=== PATIENT | female | born 1955 | race Caucasian/White ===

== ENCOUNTER 2022-01-18 23:19 | Inpatient (IN) | payer MEDICARE, OTHER ==
[~2022-01-18] VITALS: Ht 170.2 cm; Wt 56.7 kg
--- NOTE | 2022-01-18 23:50 | NUR ---
TO ER BED 13. [facility], PER STAFF PT IS AGITATED AND RAN AWAY FROM FACILITY. AAOX4. AMBULATORY WITH STEADY GAIT. BREATHING IS EVEN AND UNLABORED. CONNECTED TO MONITOR. CHANGED INTO GOWN. BELONGINGS SECURED IN LOCKER. SITTER WITHIN SIGHT. AWAITING MD GOMEZ
--- NOTE | 2022-01-18 23:51 | NUR ---
COVID SWAB COLLECTED
--- NOTE | 2022-01-18 23:52 | NUR ---
LAB AT BEDSIDE
[2022-01-19] MEDS ORDERED: PYRI-6 PO (00:07)
[2022-01-19] MEDS ORDERED: OXYM10TA10 PO (00:07)
[2022-01-19] MEDS ORDERED: GABA600T12 PO (00:07)
[2022-01-19] MEDS ORDERED: ACET325T53 PO (00:07)
[2022-01-19] MEDS ORDERED: UMEC62.5 IH (00:07)
[2022-01-19] MEDS ORDERED: FOLIC ACID PO (00:07)
[2022-01-19] MEDS ORDERED: MONT10TA22 PO (00:07)
[2022-01-19] MEDS ORDERED: CYAN10006 IM (00:07)
[2022-01-19] MEDS ORDERED: MEMA10TA PO (00:07)
[2022-01-19] MEDS ORDERED: MULT-213 PO (00:07)
[2022-01-19] MEDS ORDERED: AZEL137S7 (00:07)
[2022-01-19] MEDS ORDERED: FLUT16SP BNOSTRILS (00:07)
[2022-01-19] MEDS ORDERED: OMEP20CA15 PO (00:07)
[2022-01-19] MEDS ORDERED: OXYC-128 PO (00:07)
[2022-01-19] MEDS ORDERED: WARF6TAB49 PO (00:07)
[2022-01-19] MEDS ORDERED: CLON0.5T4 PO (00:07)
[2022-01-19] MEDS ORDERED: LORA2VIA11 IM (00:07)
[2022-01-19 00:19] LABS: BASOPHILS % (AUTO) 0.5 % (0.0-2.0); EOSINOPHILS % (AUTO) 1.1 % (0.0-6.0); HEMATOCRIT 37 % (33-45); HEMOGLOBIN 12.3 g/dL (11.5-14.8); LYMPHOCYTES # (AUTO) 1.5 K/uL (0.8-4.8); LYMPHOCYTES % (AUTO) 23.5 % (20.0-44.0); MEAN CORPUSCULAR HGB CONC 33 g/dl (31.0-36.0); MEAN CORPUSCULAR VOLUME 88 fL (82-100); MONOCYTES # (AUTO) 0.4 K/uL (0.1-1.30); MONOCYTES % (AUTO) 6.5 % (2.0-12.0); NEUTROPHILS # (AUTO) 4.4 K/uL (1.8-8.9); NEUTROPHILS % (AUTO) 68.4 % (43.0-81.0); PLATELET COUNT (AUTO) 230 K/uL (150-450); RED BLOOD CELL COUNT(AUTO) 4.16 MIL/uL (4.0-5.2); WHITE BLOOD COUNT (AUTO) 6.4 K/uL (4.3-11.0)
[2022-01-19 00:48] LABS: ALANINE AMINOTRANSFERASE 24 U/L (12-78); ALBUMIN 3.7 g/dL (3.4-5.0); ALKALINE PHOSPHATASE 69 U/L (46-116); ASPARTATE AMINOTRANSFERASE 18 U/L (15-37); BILIRUBIN,DIRECT 0.1 mg/dL (0.0-0.2); BILIRUBIN,TOTAL 0.3 mg/dL (0.2-1.0); CALCIUM, SERUM 8.9 mg/dL (8.5-10.1); CARBON DIOXIDE 30 mmol/L (21-32); CHLORIDE 106 mmol/L (98-107); CREATININE 0.7 mg/dL (0.6-1.3); GLUCOSE 141 mg/dL (74-106); POTASSIUM 3.9 mmol/L (3.5-5.1); SODIUM SERUM 143 mmol/L (136-145); TOTAL PROTEIN, SERUM 6.8 g/dL (6.4-8.2); UREA NITROGEN, BLOOD 11 mg/dL (7-18)
[2022-01-19 00:52] LABS: ACETAMINOPHEN 0 ug/ml (10-30); ALCOHOL, BLOOD < 3 mg/dL (0-0)
--- NOTE | 2022-01-19 01:51 | NUR ---
JUAN CARLOS GOMEZ.
[2022-01-19 06:58] LABS: BILIRUBIN,URINE NEGATIVE (NEGATIVE); COLOR,URINE YELLOW (YELLOW); LEUKOCYTE ESTERASE ,URINE MODERATE (NEGATIVE); NITRITE, URINE NEGATIVE (NEGATIVE); PROTEIN,URINE NEGATIVE (NEGATIVE); UGLUCOSE NEGATIVE (NEGATIVE); UROBILINOGEN,URINE 0.2 EU/dL (0.2)
[2022-01-19 07:51] LABS: BACTERIA,URINE Rare /HPF (None Seen); RBC,URINE 0-2 /HPF (0-2); SQUAMOUS EPITHELIAL CELL,UR Few /HPF (None Seen)
[2022-01-19] MEDS ORDERED: FOLI0.4T6 PO (08:07)
[2022-01-19] MEDS ORDERED: SENN-261 PO (08:07)
[2022-01-19] MEDS ORDERED: LACT10SO29 PO (08:07)
--- NOTE | 2022-01-19 08:17 | NUR ---
BREAKFAST GIVEN, REYMUNDO WELL
--- NOTE | 2022-01-19 08:22 | NUR ---
REPORT GIVEN TO FRANCOIS FOR CODI
[2022-01-19] MEDS ORDERED: TEMAZEPAM 7.5 MG CAPSULE PO PRN (10:00)
[2022-01-19] MEDS ORDERED: MAG HYDROX/AL HYDROX/SIMETH 30 ML UDC PO PRN (10:00)
[2022-01-19] MEDS ORDERED: MAGNESIUM HYDROXIDE 30 ML UDC PO PRN (10:00)
--- NOTE | 2022-01-19 10:25 | NUR ---
RN-CO: Admitted a 66 year old female from [facility] ED. Upon face to face assessment she is belligerent, non cooperative and sarcastic. When RN asked her if she has depression , she answered by asking back " are you depressed?" Her eye contact is intense her tone of voice is pressured. When Dr Donnelly asked her , she does not want to look at her in her eyes and also with a pressured speech. Per hold she was agitated in the facility and non compliant. She left the nursing facility 6 times without permission. She refused [facility] upon arrival, did not sign the admission papers, and also refused to provide specimen for MRSA. Anyhow, her right as a patient was discussed and booklet was given to her. Otherwise she doesn't want to hear anymore from the staff. Dr Donnelly gave the admitting orders.
[2022-01-19] MEDS ORDERED: BLOOD SUGAR DIAGNOSTIC 1 EACH STRIP IN ONE (11:00)
[2022-01-19] MEDS ORDERED: LACTULOSE 10 G/15 ML UDC (PYXIS) PO PRN (12:30)
[2022-01-19] MEDS: GABAPENTIN 100 MG CAPSULE PO SCH ×3 (13:00→17:39)
--- NOTE | 2022-01-19 15:34 | NUR ---
RN-CO: Patient refused photo to be taken and skin assessment.
[2022-01-19 16:00] VITALS: BP 105/56
[2022-01-19] MEDS ORDERED: GABAPENTIN 300 MG CAPSULE PO SCH (17:00)
[2022-01-19] MEDS ORDERED: MEMANTINE HCL 5 MG TABLET PO SCH (17:00)
[2022-01-19] MEDS: MONTELUKAST SODIUM (10MG) 10 MG TABLET PO SCH (17:39)
[2022-01-19] MEDS: WARFARIN SODIUM 2 MG TABLET PO SCH (17:40)
--- NOTE | 2022-01-19 19:35 | NUR ---
GPS RN OPENING NOTE RECEIVED PATIENT IN BED; AWAKE, ALERT AND ORIENTED X3. ON ROOM AIR; WELL TOLERATED WITH NO S/S RESPIRATORY DISTRESS. BREATHING EVENLY AND NONLABORED. DENIES ANY PAIN OR DISCOMFORT OF THIS TIME. ABLE TO MAKE NEEDS KNOWN. SAFETY MEASURES IMPLEMENTED: BED IN LOWEST LOCKED POSITION, SIDE RAILS UP X 2. WILL CONTINUE TO MONITOR.
[2022-01-19 20:00] VITALS: BP 105/57
[2022-01-19] MEDS: SENNOSIDES 8.6 MG TABLET PO SCH (22:51)
[2022-01-19] MEDS: MEMANTINE HCL 5 MG TABLET PO SCH (22:52)
[2022-01-19] MEDS: FLUTICASONE PROPIONATE 16 GM BOTTLE NS SCH (22:54)
[2022-01-20] MEDS: oxyCODONE/APAP (5/325 MG) 1 UDTAB TABLET PO PRN ×3 (02:48→15:00)
--- NOTE | 2022-01-20 02:52 | NUR ---
GPS RN NOTE PATIENT COMPLAINED PAIN ON HER HIPS WITH SCALE OF 7/10, PRN PERCOCET 5/325 MG 1 TAB GIVEN PO ORDERED @0248; WILL REASSESS AFTER 1 HOUR.
--- NOTE | 2022-01-20 07:30 | NUR ---
PT RECEIVED RESTING COMFORTABLY IN BED. NO S/S OR C/O PAIN OR DISTRESS NOTED. SIDE RAILS UP X2. WILL CONTINUE PLAN OF CARE.
[2022-01-20 08:00] VITALS: BP 109/67
[2022-01-20 08:27] LABS: CHOLESTEROL 176 mg/dL (<200); HDL CHOLESTEROL 59 mg/dL (40-60); LDL 104 mg/dL (0-99); TRIGLYCERIDES 57 mg/dL (30-150)
[2022-01-20] MEDS: MULTIVIT W/MINERALS 1 TAB TABLET PO SCH (08:39)
[2022-01-20] MEDS: PANTOPRAZOLE 40 MG TABLET.DR PO SCH (08:39)
[2022-01-20] MEDS: GABAPENTIN 100 MG CAPSULE PO SCH ×4 (08:39→17:09)
[2022-01-20] MEDS: FOLIC ACID 1 MG TABLET PO SCH (08:40)
[2022-01-20] MEDS: PYRIDOXINE HCL 50 MG TABLET PO SCH (08:43)
[2022-01-20] MEDS: MEMANTINE HCL 5 MG TABLET PO SCH ×2 (08:45→21:20)
[2022-01-20 09:19] LABS: CALCIUM, SERUM 9.4 mg/dL (8.5-10.1); CREATININE 0.5 mg/dL (0.6-1.3); POTASSIUM 3.6 mmol/L (3.5-5.1)
[2022-01-20 10:07] LABS: ALBUMIN 3.8 g/dL (3.4-5.0); BILIRUBIN,TOTAL 0.6 mg/dL (0.2-1.0); TOTAL PROTEIN, SERUM 6.9 g/dL (6.4-8.2)
[2022-01-20] MEDS: ACETAMINOPHEN 325 MG TABLET PO PRN ×2 (10:42→17:20)
[2022-01-20] MEDS: LORAZEPAM 0.5 MG TABLET PO PRN (10:42)
--- NOTE | 2022-01-20 12:24 | NUR ---
JASON Initial Discharge Plan: Pt. reported to video game script writer that she wants to go back home to the house that her mom gave her before she . Per hold, pt. resides at [facility]. SW will contact her boyfriend Vikas ([phone]) as needed. JASON will continue to work with pt., nurse Snow from [facility], and MD to ensure a safe and proper discharge plan. Pt. stated that she does not want her brother (Hubert) to be contacted, pt. prefers her boyfriend Vikas to be contacted ([phone]).
--- NOTE | 2022-01-20 12:26 | NUR ---
JASON Clinical Note: Pt. was brought to [facility] and placed on a 5150 hold for DTS/GD. Per hold, pt. appeared confused and kept talking about her brother removing her from her parents house. Pt.'s nurse Gwendolyn from [facility] ([phone]) reports pt. is agitated, not complying with directives, and attempted to leave the facility 6 times. Pt. is dx with anxiety and depression, she is on Ativan and Zyprexa. SW will gather collateral from pt.'s nurse Gwendolyn ([phone]) and will discuss discharge and treatment plan. Per pt., she does not want her brother Hubert to be contacted. Pt. prefers her boyfriend Vikas ([phone]). DC Note: Pt. reported to lyric writer that she wants to go back home to the house that her mom gave her before she . Per hold, pt. resides at [facility]. SW will contact her boyfriend Vikas ([phone]) as needed. JASON will continue to work with pt., nurse Snow from [facility], and to ensure a safe and proper discharge plan. Pt. stated that she does not want her brother (Hubert) to be contacted, pt. prefers her boyfriend Vikas to be contacted ([phone]).
--- NOTE | 2022-01-20 13:40 | NUR ---
JASON contacted pt.'s nursing facility ([facility] [phone]), spoke with Linden from Admissions. Per Linden, he will discuss with his team regarding pt.'s return to facility. Linden will give JASON a call back.
--- NOTE | 2022-01-20 13:43 | NUR ---
SW contacted her boyfriend (Vikas [phone]) and left voicemail.
--- NOTE | 2022-01-20 13:46 | NUR ---
Linden from [facility] ([phone]) called back and stated that he prefers a different placement for pt. Per Linden, if we cannot find a different placement, the facility is willing to take her back.
--- NOTE | 2022-01-20 14:34 | NUR ---
Law Office: JASON received a call from Anival ([phone]) who sent documents indicated that she is pt's appointed assistant attorney general from the court and that they are in the process of probate conservatorship. She reported that pt's hearing is February 18. Addendum: 01/20/22 at 1436 by JASON RODRIGUEZ JASON placed copy in pt's chart.
[2022-01-20 16:00] VITALS: BP 112/58
[2022-01-20] MEDS ORDERED: WARFARIN SODIUM 5 MG TABLET PO ONE (17:00)
[2022-01-20] MEDS: MONTELUKAST SODIUM (10MG) 10 MG TABLET PO SCH (17:09)
[2022-01-20] MEDS: WARFARIN SODIUM 2 MG TABLET PO SCH (17:13)
--- NOTE | 2022-01-20 18:04 | NUR ---
CHANGE OF SHIFT REPORT PT RESTING COMFORTABLY IN BED. NO S/S OR C/O PAIN OR DISTRESS NOTED. SIDE RAILS UP X2, PT KEPT CLEAN DRY AND COMFORTABLE. NO SIGNIFICANT CHANGE SINCE PREVIOUS SHIFT. WILL GIVE REPORT TO WADE HERMOSILLO.
[2022-01-20] MEDS: IPRATROPIUM NEB FS 0.5 MG/2.5 ML AMPUL.NEB NEB SCH ×2 (19:30→20:51)
[2022-01-20 20:00] VITALS: BP 105/52
[2022-01-20] MEDS: SENNOSIDES 8.6 MG TABLET PO SCH (21:20)
[2022-01-20] MEDS: FLUTICASONE PROPIONATE 16 GM BOTTLE NS SCH (21:20)
[2022-01-21] MEDS: IPRATROPIUM NEB FS 0.5 MG/2.5 ML AMPUL.NEB NEB SCH ×4 (01:30→20:13)
[2022-01-21] MEDS: oxyCODONE/APAP (5/325 MG) 1 UDTAB TABLET PO PRN ×2 (04:50→12:18)
[2022-01-21] MEDS: PANTOPRAZOLE 40 MG TABLET.DR PO SCH (07:30)
[2022-01-21 08:00] VITALS: BP 99/59
[2022-01-21] MEDS: GABAPENTIN 100 MG CAPSULE PO SCH ×3 (09:14→17:30)
[2022-01-21] MEDS: MEMANTINE HCL 5 MG TABLET PO SCH ×2 (09:14→21:44)
[2022-01-21] MEDS: FOLIC ACID 1 MG TABLET PO SCH (09:14)
[2022-01-21] MEDS: MULTIVIT W/MINERALS 1 TAB TABLET PO SCH (09:14)
[2022-01-21] MEDS: PYRIDOXINE HCL 50 MG TABLET PO SCH (09:15)
--- NOTE | 2022-01-21 12:18 | NUR ---
Percocet 5/325 given for back pain will continue to monitor .
[2022-01-21 16:00] VITALS: BP 100/61
[2022-01-21] MEDS ORDERED: WARFARIN SODIUM 5 MG TABLET PO ONE (17:00)
[2022-01-21] MEDS: WARFARIN SODIUM 2 MG TABLET PO SCH (17:31)
[2022-01-21] MEDS: MONTELUKAST SODIUM (10MG) 10 MG TABLET PO SCH (18:41)
--- NOTE | 2022-01-21 18:56 | NUR ---
5250 hold explained to patient able to verbalize understanding copy given to patient .
[2022-01-21 20:17] VITALS: BP 102/55
[2022-01-21] MEDS: SENNOSIDES 8.6 MG TABLET PO SCH (21:44)
[2022-01-21] MEDS: FLUTICASONE PROPIONATE 16 GM BOTTLE NS SCH (21:56)
[2022-01-22] MEDS: IPRATROPIUM NEB FS 0.5 MG/2.5 ML AMPUL.NEB NEB SCH ×4 (01:36→19:30)
[2022-01-22 08:00] VITALS: BP 112/69
[2022-01-22] MEDS: MEMANTINE HCL 5 MG TABLET PO SCH ×2 (08:15→21:34)
[2022-01-22] MEDS: FOLIC ACID 1 MG TABLET PO SCH (08:15)
[2022-01-22] MEDS: PANTOPRAZOLE 40 MG TABLET.DR PO SCH (08:15)
[2022-01-22] MEDS: GABAPENTIN 100 MG CAPSULE PO SCH ×3 (08:16→17:33)
[2022-01-22] MEDS: MULTIVIT W/MINERALS 1 TAB TABLET PO SCH (08:16)
[2022-01-22] MEDS: ACETAMINOPHEN 325 MG TABLET PO PRN (08:16)
[2022-01-22] MEDS: PYRIDOXINE HCL 50 MG TABLET PO SCH (08:18)
--- NOTE | 2022-01-22 11:25 | NUR ---
SNF Referral: JASON received sent clinicals to Leann from [facility] ([phone]) for placement. JASON sent H & P, progress notes, and medication list.
[2022-01-22] MEDS: oxyCODONE/APAP (5/325 MG) 1 UDTAB TABLET PO PRN ×2 (11:32→21:46)
--- NOTE | 2022-01-22 11:33 | NUR ---
RN-CO: PERCOCET GIVEN FOR HIP PAIN 01/03.
[2022-01-22] MEDS: LORAZEPAM 0.5 MG TABLET PO PRN (12:25)
--- NOTE | 2022-01-22 12:27 | NUR ---
RN-CO: ATIVAN 0.5 MG PO GIVEN FOR RESTLESSNESS.
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
--- NOTE | 2022-01-22 13:49 | NUR ---
SNF Referral: JASON sent clinicals to Ant grissom from [facility] ([phone]) for placement option. JASON sent H & P, progress notes, and medication list.
[2022-01-22] MEDS: DULOXETINE HCL 30 MG CAPSULE.DR PO SCH (14:12)
--- NOTE | 2022-01-22 15:21 | NUR ---
RN-CO: PATIENT IS FOCUS ON DISCHARGED AND NARCOTICS. SHE STATED SHE HAS SEVERE PAIN IN THE HIPS BUT SHE WALKS FAST IN THE HALLWAY.SHE IS PERSEVERATING AND FORGETFUL WHEN ASKING QUESTIONS.
--- NOTE | 2022-01-22 15:46 | NUR ---
RN-CO: DR KLENI was notified regarding the PT INR result, awaiting to call back.
[2022-01-22 16:00] VITALS: BP 111/65
--- NOTE | 2022-01-22 16:22 | NUR ---
RN-CO: DR KLEIN RESPONDED AND ORDERED TO HOLD COUMADIN 11 MG PO TODAY FOR PT 12.2 AND INR 1.17. NOTED.
[2022-01-22] MEDS: WARFARIN SODIUM 2 MG TABLET PO SCH (16:38)
[2022-01-22] MEDS ORDERED: WARFARIN SODIUM 5 MG TABLET PO SCH (17:00)
[2022-01-22] MEDS: MONTELUKAST SODIUM (10MG) 10 MG TABLET PO SCH (17:33)
--- NOTE | 2022-01-22 19:20 | NUR ---
GPS RN NOTES RECEIVED PATIENT IN HER ROOM RESTING COMFORTABLY. ALERT AND ORIENTED X2. NO S/SX OF ACUTE DISTRESS NOTED. PATIENT IS ANXIOUS, BLUNTED AFFECT, FORGETFUL. NO VERBALIZATION OF THOUGHTS AND FEELINGS. SAFETY PRECAUTIONS IN PLACE. WILL CONTINUE TO MONITOR Q15MIN ROUNDS FOR SAFETY AND BEHAVIOR.
[2022-01-22 20:00] VITALS: BP 119/72
[2022-01-22] MEDS: FLUTICASONE PROPIONATE 16 GM BOTTLE NS SCH (21:34)
[2022-01-22] MEDS: SENNOSIDES 8.6 MG TABLET PO SCH (21:34)
[2022-01-23] MEDS: IPRATROPIUM NEB FS 0.5 MG/2.5 ML AMPUL.NEB NEB SCH ×4 (01:30→19:30)
[2022-01-23 08:00] VITALS: BP 114/61
[2022-01-23] MEDS: PANTOPRAZOLE 40 MG TABLET.DR PO SCH (08:31)
[2022-01-23] MEDS: GABAPENTIN 100 MG CAPSULE PO SCH ×3 (09:21→16:55)
[2022-01-23] MEDS: MULTIVIT W/MINERALS 1 TAB TABLET PO SCH (09:21)
[2022-01-23] MEDS: MEMANTINE HCL 5 MG TABLET PO SCH ×2 (09:21→21:16)
[2022-01-23] MEDS: FOLIC ACID 1 MG TABLET PO SCH (09:22)
[2022-01-23] MEDS: DULOXETINE HCL 30 MG CAPSULE.DR PO SCH (09:22)
[2022-01-23] MEDS: PYRIDOXINE HCL 50 MG TABLET PO SCH (09:25)
[2022-01-23] MEDS: oxyCODONE/APAP (5/325 MG) 1 UDTAB TABLET PO PRN ×2 (11:36→23:08)
--- NOTE | 2022-01-23 14:13 | NUR ---
Court Notification: Pt did not want this board writer to notify for 5250 hearing.
--- NOTE | 2022-01-23 14:53 | NUR ---
RN-NOTES PATIENT WATCHING TV IN THE DAY ROOM,CALM,AND COOPERATIVE WITH STAFF,NO ACUTE DISTRESS NOTED. COMPLIANT WITH MEDICATIONS.ABLE TO AMBULATE WITH WALKER.NOTED PATIENT WITH EPISODE OF FORGETFUL.NEEDS FREQUENT INSTRUCTIONS. ALL NEEDS ATTENDED AND ANTICIPATED. WILL CONT. MONITORING FOR SAFETY AND BEHAVIOR. WILL ENDORSE TO THE INCOMING SHIFT.
--- NOTE | 2022-01-23 15:16 | NUR ---
Court Hearing: Patient's court hearing for 9090 was today and it was upheld for GD.
--- NOTE | 2022-01-23 15:36 | NUR ---
SNF Contact: SW received a call from Ant grissom from [facility] ([phone]) who stated pt is accepted.
[2022-01-23 16:00] VITALS: BP 119/66
--- NOTE | 2022-01-23 16:39 | NUR ---
RN-NOTES DR. VEGA NOTIFIED WITH PATIENT INR 1.34 WITH TO ORDER OF COUMADIN 6MG P.O AT 5PM .NOTED AND CARRIED OUT.
[2022-01-23] MEDS: WARFARIN SODIUM 2 MG TABLET PO SCH (16:57)
[2022-01-23] MEDS: MONTELUKAST SODIUM (10MG) 10 MG TABLET PO SCH (17:42)
[2022-01-23 20:00] VITALS: BP 126/74
[2022-01-23] MEDS: SENNOSIDES 8.6 MG TABLET PO SCH (21:16)
[2022-01-23] MEDS: FLUTICASONE PROPIONATE 16 GM BOTTLE NS SCH (21:16)
--- NOTE | 2022-01-23 23:10 | NUR ---
RN NOTES: PAIN PT. C/O PAIN RIGHT/LEFT HIP 02/02 , PRN PERCOCET1 TAB GIVEN PER PT. REQUEST, WILL CONTINUE TO MONITOR.
[2022-01-24] MEDS: IPRATROPIUM NEB FS 0.5 MG/2.5 ML AMPUL.NEB NEB SCH ×4 (01:23→19:30)
--- NOTE | 2022-01-24 05:02 | NUR ---
RN NOTE : PATIENT IN HER ROOM RESTING. NO S/SX OF ACUTE DISTRESS NOTED.PT. PARANOID, NEEDY DEMENDING, EASILY AGITATED ,ANXIOUS, BLUNTED AFFECT, FORGETFUL. NO VERBALIZATION OF THOUGHTS AND FEELINGS. SAFETY PRECAUTIONS IN PLACE. WILL CONTINUE TO MONITOR Q15MIN ROUNDS FOR SAFETY AND BEHAVIOR.
[2022-01-24 08:00] VITALS: BP 116/69
[2022-01-24] MEDS: DULOXETINE HCL 30 MG CAPSULE.DR PO SCH (08:10)
[2022-01-24] MEDS: FOLIC ACID 1 MG TABLET PO SCH (08:10)
[2022-01-24] MEDS: MEMANTINE HCL 5 MG TABLET PO SCH ×2 (08:10→20:45)
[2022-01-24] MEDS: PANTOPRAZOLE 40 MG TABLET.DR PO SCH (08:10)
[2022-01-24] MEDS: GABAPENTIN 100 MG CAPSULE PO SCH ×3 (08:10→16:30)
[2022-01-24] MEDS: MULTIVIT W/MINERALS 1 TAB TABLET PO SCH (09:21)
[2022-01-24] MEDS: PYRIDOXINE HCL 50 MG TABLET PO SCH (09:21)
--- NOTE | 2022-01-24 10:26 | NUR ---
Law Office: JASON contacted court appointed workers compensation attorney Anival ([phone]) and gathered more information. She stated pt's court will be February 18, 2022. JASON explained that pt cannot return back to [facility] due to eloping and accepted at [facility], she was agreeable of her going to this facility. Anival expressed pt is aware of this process and has been speaking to pt everyday. JASON explained that pt is unsure of who Bill is. Anival explained that Bill will be the assigned temp conservator and pt is aware of this.
[2022-01-24 16:00] VITALS: BP 117/67
[2022-01-24] MEDS: WARFARIN SODIUM 2 MG TABLET PO SCH (16:31)
--- NOTE | 2022-01-24 17:20 | NUR ---
RN-NOTES PATIENT WATCHING TV IN THE DAY ROOM,CALM,NO ACUTE DISTRESS NOTED. COMPLIANT WITH MEDICATIONS.ABLE TO MAKE NEEDS KNOWN TO THE STAFF AND AMBULATE WITH WALKER.ALL NEEDS ATTENDED AND ANTICIPATED. WILL CONT. MONITORING FOR SAFETY AND BEHAVIOR.WILL ENDORSE TO INCOMING NURSE FOR CONTINUITY OF CARE.
[2022-01-24] MEDS: MONTELUKAST SODIUM (10MG) 10 MG TABLET PO SCH (17:42)
[2022-01-24 20:00] VITALS: BP 112/70
[2022-01-24] MEDS: SENNOSIDES 8.6 MG TABLET PO SCH (21:02)
[2022-01-24] MEDS: FLUTICASONE PROPIONATE 16 GM BOTTLE NS SCH (21:04)
[2022-01-25] MEDS: IPRATROPIUM NEB FS 0.5 MG/2.5 ML AMPUL.NEB NEB SCH ×4 (01:30→20:07)
--- NOTE | 2022-01-25 06:46 | NUR ---
RN NOTE : PATIENT IN HER ROOM RESTING. NO S/SX OF ACUTE DISTRESS NOTED.PT. DISORGNIZED , BUT I SHIFT PT. BEHAVIOR COOPERTIVE AT TIMES, NEEDY , EASILY AGITATED , BLUNTED AFFECT, FORGETFUL. NO VERBALIZATION OF THOUGHTS AND FEELINGS. SAFETY PRECAUTIONS IN PLACE. WILL CONTINUE TO MONITOR Q15MIN ROUNDS FOR SAFETY AND BEHAVIOR.
[2022-01-25 08:00] VITALS: BP 120/62
[2022-01-25] MEDS: PANTOPRAZOLE 40 MG TABLET.DR PO SCH (08:06)
[2022-01-25] MEDS: MULTIVIT W/MINERALS 1 TAB TABLET PO SCH (08:18)
[2022-01-25] MEDS: FOLIC ACID 1 MG TABLET PO SCH (08:18)
[2022-01-25] MEDS: MEMANTINE HCL 5 MG TABLET PO SCH ×2 (08:18→21:16)
[2022-01-25] MEDS: GABAPENTIN 100 MG CAPSULE PO SCH ×3 (08:18→17:07)
[2022-01-25] MEDS: DULOXETINE HCL 30 MG CAPSULE.DR PO SCH (08:20)
[2022-01-25] MEDS: PYRIDOXINE HCL 50 MG TABLET PO SCH (09:15)
[2022-01-25] MEDS ORDERED: WARFARIN SODIUM 2 MG TABLET PO ONE (09:30)
--- NOTE | 2022-01-25 11:04 | NUR ---
RN-NOTES DR. KLEIN T.O ORDER TO GIVE COUMADIN 10MG TODAY AND WILL RESUME COUMADIN 6MG P.O TOMORROW.
[2022-01-25] MEDS: oxyCODONE/APAP (5/325 MG) 1 UDTAB TABLET PO PRN (15:04)
[2022-01-25 16:00] VITALS: BP 124/71
[2022-01-25] MEDS: WARFARIN SODIUM 2 MG TABLET PO SCH (17:00)
[2022-01-25] MEDS: MONTELUKAST SODIUM (10MG) 10 MG TABLET PO SCH (17:07)
--- NOTE | 2022-01-25 17:27 | NUR ---
RN-NOTES PATIENT WATCHING TV IN THE DAY ROOM,CALM,NO ACUTE DISTRESS NOTED. CALM,AND COOPERATIVE WITH STAFF.COMPLIANT WITH MEDICATIONS.ABLE TO MAKE NEEDS KNOWN TO THE STAFF AND AMBULATE WITH WALKER.ALL NEEDS ATTENDED AND ANTICIPATED. WILL CONT. MONITORING FOR SAFETY AND BEHAVIOR.WILL ENDORSE TO INCOMING NURSE FOR CONTINUITY OF CARE.
[2022-01-25 21:14] VITALS: BP 94/52
[2022-01-25] MEDS: SENNOSIDES 8.6 MG TABLET PO SCH (21:16)
[2022-01-25] MEDS: FLUTICASONE PROPIONATE 16 GM BOTTLE NS SCH (21:17)
[2022-01-26] MEDS: IPRATROPIUM NEB FS 0.5 MG/2.5 ML AMPUL.NEB NEB SCH ×4 (01:30→20:30)
--- NOTE | 2022-01-26 01:40 | NUR ---
RT Patient refused breathing tx at this time.
--- NOTE | 2022-01-26 06:12 | NUR ---
END OF SHIFT REPORT Hours of sleep 7. Patient cooperative, compliant with PO medication. Ambulated to the bathroom, no c/o pain. No agitated behavior during the shift. Will endorse to oncoming RN.
[2022-01-26 08:00] VITALS: BP 124/67
[2022-01-26] MEDS: PANTOPRAZOLE 40 MG TABLET.DR PO SCH (08:03)
[2022-01-26] MEDS: MULTIVIT W/MINERALS 1 TAB TABLET PO SCH (08:27)
[2022-01-26] MEDS: GABAPENTIN 100 MG CAPSULE PO SCH ×3 (08:27→16:58)
[2022-01-26] MEDS: DULOXETINE HCL 30 MG CAPSULE.DR PO SCH (08:28)
[2022-01-26] MEDS: MEMANTINE HCL 5 MG TABLET PO SCH ×2 (08:28→21:47)
[2022-01-26] MEDS: FOLIC ACID 1 MG TABLET PO SCH (08:28)
[2022-01-26] MEDS: PYRIDOXINE HCL 50 MG TABLET PO SCH (08:29)
[2022-01-26] MEDS: oxyCODONE/APAP (5/325 MG) 1 UDTAB TABLET PO PRN (09:51)
--- NOTE | 2022-01-26 11:06 | NUR ---
RN-NOTES DR. GILMORE MADE AWARE OF PATIENT INR RESULT TODAY WITH T.O ORDER TO CONTINUE COUMADIN 6MG P.O @ 5PM.
[2022-01-26 16:01] VITALS: BP 100/63
[2022-01-26] MEDS: WARFARIN SODIUM 2 MG TABLET PO SCH (16:59)
[2022-01-26] MEDS: MONTELUKAST SODIUM (10MG) 10 MG TABLET PO SCH (17:26)
--- NOTE | 2022-01-26 18:15 | NUR ---
RN-NOTES PATIENT VISIBLA IN THE UNIT,NO ACUTE DISTRESS NOTED. CALM,AND COOPERATIVE WITH STAFF.COMPLIANT WITH MEDICATIONS.ABLE TO MAKE NEEDS KNOWN TO THE STAFF AND AMBULATE WITH WALKER.ALL NEEDS ATTENDED AND ANTICIPATED. WILL CONT. MONITORING FOR SAFETY AND BEHAVIOR.WILL ENDORSE TO INCOMING NURSE FOR CONTINUITY OF CARE.
[2022-01-26 20:09] VITALS: BP 102/63
[2022-01-26] MEDS: SENNOSIDES 8.6 MG TABLET PO SCH (21:46)
[2022-01-26] MEDS: FLUTICASONE PROPIONATE 16 GM BOTTLE NS SCH (21:47)
[2022-01-26] MEDS: ACETAMINOPHEN 325 MG TABLET PO PRN (22:15)
[2022-01-27] MEDS: IPRATROPIUM NEB FS 0.5 MG/2.5 ML AMPUL.NEB NEB SCH ×4 (01:30→19:30)
[2022-01-27] MEDS: PANTOPRAZOLE 40 MG TABLET.DR PO SCH (07:56)
[2022-01-27 08:00] VITALS: BP 100/65
[2022-01-27] MEDS: DULOXETINE HCL 30 MG CAPSULE.DR PO SCH (08:01)
[2022-01-27] MEDS: GABAPENTIN 100 MG CAPSULE PO SCH ×3 (08:01→16:20)
[2022-01-27] MEDS: MULTIVIT W/MINERALS 1 TAB TABLET PO SCH (08:01)
[2022-01-27] MEDS: MEMANTINE HCL 5 MG TABLET PO SCH ×2 (08:01→21:44)
[2022-01-27] MEDS: FOLIC ACID 1 MG TABLET PO SCH (08:02)
[2022-01-27] MEDS: PYRIDOXINE HCL 50 MG TABLET PO SCH (08:04)
--- NOTE | 2022-01-27 11:35 | NUR ---
JASON Note: SW met with pt again explaining her current situation. Pt states that she has "no idea with what is going on". SW explained her current situation all over again. Reminding her about court appointed district manager postal service and not having a safe place to go too. Pt appeared forgetful and appeared confused. SW has explained this to pt multiple times.
[2022-01-27 16:00] VITALS: BP 102/60
[2022-01-27] MEDS: WARFARIN SODIUM 2 MG TABLET PO SCH (16:23)
[2022-01-27] MEDS ORDERED: WARFARIN SODIUM 5 MG TABLET PO SCH (17:00)
[2022-01-27] MEDS: MONTELUKAST SODIUM (10MG) 10 MG TABLET PO SCH (17:18)
[2022-01-27] MEDS: oxyCODONE/APAP (5/325 MG) 1 UDTAB TABLET PO PRN (17:56)
[2022-01-27 19:48] VITALS: BP 124/54
[2022-01-27] MEDS: SENNOSIDES 8.6 MG TABLET PO SCH (21:44)
[2022-01-27] MEDS: FLUTICASONE PROPIONATE 16 GM BOTTLE NS SCH (22:39)
[2022-01-28] MEDS: IPRATROPIUM NEB FS 0.5 MG/2.5 ML AMPUL.NEB NEB SCH ×4 (02:35→21:00)
[2022-01-28] MEDS: PANTOPRAZOLE 40 MG TABLET.DR PO SCH (07:30)
[2022-01-28 08:00] VITALS: BP 120/57
[2022-01-28] MEDS: MEMANTINE HCL 5 MG TABLET PO SCH ×2 (08:48→21:24)
[2022-01-28] MEDS: MULTIVIT W/MINERALS 1 TAB TABLET PO SCH (08:48)
[2022-01-28] MEDS: FOLIC ACID 1 MG TABLET PO SCH (08:48)
[2022-01-28] MEDS: GABAPENTIN 100 MG CAPSULE PO SCH ×3 (08:48→17:59)
[2022-01-28] MEDS: DULOXETINE HCL 30 MG CAPSULE.DR PO SCH (08:48)
[2022-01-28] MEDS: PYRIDOXINE HCL 50 MG TABLET PO SCH (08:50)
--- NOTE | 2022-01-28 10:56 | NUR ---
Law Office: SW contacted court appointed civil rights attorney Anival ([phone]) and notified that pt will be discharged 01/29/22 to [facility] and she was agreeable of this.
--- NOTE | 2022-01-28 11:30 | NUR ---
JASON Note: SW met with patient and explained to pt multiple times that she has a court appointed deputy commonwealth's attorney and will have her court this month for probate conservatorship. SW stated she is accepted at [facility] and cannot return back to [facility]. Pt acts like she understands and agrees.
[2022-01-28] MEDS: oxyCODONE/APAP (5/325 MG) 1 UDTAB TABLET PO PRN ×2 (13:43→20:14)
--- NOTE | 2022-01-28 13:47 | NUR ---
Percocet 5/325 given for back pain will continue to monitor .
[2022-01-28 16:00] VITALS: BP 107/61
[2022-01-28] MEDS: WARFARIN SODIUM 2 MG TABLET PO SCH (17:58)
[2022-01-28] MEDS: MONTELUKAST SODIUM (10MG) 10 MG TABLET PO SCH (17:59)
--- NOTE | 2022-01-28 19:30 | NUR ---
GPS RN NOTES RECEIVED ON IN THE ACTIVITY ROOM SITTING ON [employer] CHAIR WATCHING TV PROGRAM.BREATHING REGULAR,NOT IN ANY FORM OF DISTRESS.C.O MILD PAIN,TOLERABLE ON THE RIGHT HIP,AMBULATE WITH WALKER,ABLE TO VERBALIZE NEEDS,FOLLOW INSTRUCTION,MED COMPLIANT.WILL CONTINUE TO MONITOR TO MONITOR BEHAVIOR.
[2022-01-28 19:47] VITALS: BP 112/54
[2022-01-28 20:00] VITALS: BP 112/54
--- NOTE | 2022-01-28 20:14 | NUR ---
GPS RN NOTES C/O PAIN ON RIGHT HIP AND LOWER BACK 7/10 ON PAIN SCALE,PERCOCET 5/325MG, 1 TAB PO GIVEN ORDERED FOR MODERATE PAIN.FALL PRECAUTION OBSERVED.ENCOURAGED TO STAY ON BED.
[2022-01-28] MEDS: FLUTICASONE PROPIONATE 16 GM BOTTLE NS SCH (21:24)
[2022-01-28] MEDS: SENNOSIDES 8.6 MG TABLET PO SCH (21:24)
--- NOTE | 2022-01-29 | NUR ---
GPS RN NOTES COVID ANTIGEN DONE,SENT TO LAB.
[2022-01-29] MEDS: IPRATROPIUM NEB FS 0.5 MG/2.5 ML AMPUL.NEB NEB SCH ×2 (01:30→08:30)
--- NOTE | 2022-01-29 07:49 | NUR ---
SW Discharge Note: Patient will be discharged to senior care facility [facility] [address] [place] [address]; ([phone]). Please arrange transportation at 1PM. Field Service Consultant spoke with Ant grissom at [facility] ([phone]) who stated patient will be accepted at facility today. Patients is aware and agreeable. Patient is alert and oriented x2 and is not able to plan for self-care at this time but is willing to accept care provided for her at the facility. Patient denies suicidal or homicidal ideation. Patients court appointed bookkeepers supervisor Anival ([phone]) is aware. Patient will follow-up with (Psychiatrist) Dr. Donnelly [address], [place] [address]; ([phone]) and Shipper Dr. Caldera [address], [place] [address]; ([phone]). Patient presents with euthymic mood and congruent affect.
[2022-01-29] MEDS: PANTOPRAZOLE 40 MG TABLET.DR PO SCH (07:52)
[2022-01-29 08:00] VITALS: BP 112/63
[2022-01-29] MEDS: PYRIDOXINE HCL 50 MG TABLET PO SCH (08:25)
[2022-01-29] MEDS: FOLIC ACID 1 MG TABLET PO SCH (08:25)
[2022-01-29] MEDS: DULOXETINE HCL 30 MG CAPSULE.DR PO SCH (08:25)
[2022-01-29] MEDS: MEMANTINE HCL 5 MG TABLET PO SCH (08:25)
[2022-01-29] MEDS: GABAPENTIN 100 MG CAPSULE PO SCH ×2 (08:25→12:19)
[2022-01-29] MEDS: MULTIVIT W/MINERALS 1 TAB TABLET PO SCH (08:25)
--- NOTE | 2022-01-29 11:33 | NUR ---
JASON Note: SW met with pt with Dr. Andres present on January 24, 2022 as it indicates in doctor Andres's note. JASON and doctor Andres discussed with pt her current condition and having a court appointed civil rights attorney and that it is in the process of probate conservatorship. Pt had no current safe discharge plan. JASON spoke with her civil rights attorney Anival on January 24, 2022 who explained that pt is aware of this process and has been in communication with pt and has explained it to her multiple times. Anival, civil rights attorney, stated pt does not have an existing or safe place to go too.
--- NOTE | 2022-01-29 13:30 | NUR ---
RN-DISCHARGE NOTES PATIENT HAD A DISCHARGE ORDER FROM DR. OZUNA ( PSYCHIATRIST) MILAGRO FRANCES MEDICALLY CLEARED PATIENT FOR DISCHARGE. REPORT WAS GIVEN TO [facility]. PATIENT LEFT THE UNIT IN STABLE CONDITION A/O X2, DID NOT VERBALIZE SI/HI,DENIES VISUAL/AUDITORY HALLUCINATIONS AT THE TIME OF DISCHARGE. PATIENT LEFT THE UNIT WITH ALL BELONGINGS. PATIENT REFUSED FULL BODY ASSESSMENT PRIOR TO DISCHARGE.
== END 2022-01-29 13:30 | DRG 885 ==
LOC: ER 23:35 → TRANSITION 01-19 07:30 → GPS 01-19 08:22
PROVIDERS: ADMIT Psychiatry & Neurology Psychosomatic Medicine; ATTEND Internal Medicine
DX: F31.9 Bipolar disorder, unspecified (principal); N39.0 Urinary tract infection, site not specified; E44.0 Moderate protein-calorie malnutrition; F03.90 Unspecified dementia, unspecified severity, without behavioral disturbance, psychotic disturbance, mood disturbance, and anxiety; E11.9 Type 2 diabetes mellitus without complications; F09 Unspecified mental disorder due to known physiological condition; G62.9 Polyneuropathy, unspecified; M16.0 Bilateral primary osteoarthritis of hip; G89.4 Chronic pain syndrome; M62.81 Muscle weakness (generalized); Z86.711 Personal history of pulmonary embolism; Z79.01 Long term (current) use of anticoagulants; I10 Essential (primary) hypertension; Z79.899 Other long term (current) drug therapy; Z91.81 History of falling; Z66 Do not resuscitate; Z96.641 Presence of right artificial hip joint
CPT/HCPCS: 36415; 80048-TC; 80053-TC; 80061-TC; 80076-TC; 81001; 85025-TC; 85610-TC; 87081-TC; 87086-TC; 94799-TC; C9803; G0480

== ENCOUNTER 2024-02-03 08:16 | Inpatient (IN) | payer MEDICARE, OTHER ==
[~2024-02-03] VITALS: Ht 167.6 cm; Wt 59.0 kg
[~2024-02-03 08:16] MED LIST: ACET325T53 PO; AZEL137S7; CLON0.5T4 PO; CYAN10006 IM; FLUT16SP BNOSTRILS; FOLI0.4T6 PO; GABA600T12 PO; LACT10SO29 PO; LORA2VIA11 IM; MEMA10TA PO; MONT10TA22 PO; MULT-213 PO; OMEP20CA15 PO; OXYC-128 PO; OXYM10TA10 PO; PYRI-6 PO; SENN-261 PO; UMEC62.5 IH; WARF6TAB49 PO
[2024-02-03 09:09] LABS: BASOPHILS % (AUTO) 0.4 % (0.0-2.0); EOSINOPHILS # (AUTO) 0.1 K/uL (0.0-0.7); EOSINOPHILS % (AUTO) 1.3 % (0.0-6.0); HEMATOCRIT 34 % (33-45); HEMOGLOBIN 11.5 g/dL (11.5-14.8); LYMPHOCYTES # (AUTO) 1.5 K/uL (0.8-4.8); LYMPHOCYTES % (AUTO) 23.5 % (20.0-44.0); MEAN CORPUSCULAR HEMOGLOBIN 29 PG (26.0-33.0); MEAN CORPUSCULAR HGB CONC 33 g/dl (31.0-36.0); MEAN CORPUSCULAR VOLUME 88 fL (82-100); MONOCYTES # (AUTO) 0.5 K/uL (0.1-1.30); MONOCYTES % (AUTO) 7.8 % (2.0-12.0); NEUTROPHILS # (AUTO) 4.3 K/uL (1.8-8.9); PLATELET COUNT (AUTO) 252 K/uL (150-450); RED CELL DISTRIBUTION WIDTH 13.5 % (11.5-15.0); WHITE BLOOD COUNT (AUTO) 6.4 K/uL (4.3-11.0)
[2024-02-03 09:12] LABS: ACETAMINOPHEN <10 ug/ml (10-30); ALANINE AMINOTRANSFERASE 18 U/L (12-78); ALBUMIN 3.5 g/dL (3.4-5.0); ALKALINE PHOSPHATASE 110 U/L (46-116); ASPARTATE AMINOTRANSFERASE 18 U/L (15-37); BILIRUBIN,DIRECT 0.2 mg/dL (0.0-0.2); BILIRUBIN,TOTAL 0.8 mg/dL (0.2-1.0); CALCIUM, SERUM 9.1 mg/dL (8.5-10.1); CARBON DIOXIDE 30 mmol/L (21-32); CHLORIDE 101 mmol/L (98-107); CREATININE 0.7 mg/dL (0.6-1.3); GLUCOSE 109 mg/dL (74-106); POTASSIUM 3.5 mmol/L (3.5-5.1); SALICYLATE < 3.0 mg/dL (2.8-20.0); SODIUM SERUM 136 mmol/L (136-145); TOTAL PROTEIN, SERUM 7.2 g/dL (6.4-8.2); UREA NITROGEN, BLOOD 12 mg/dL (7-18)
[2024-02-03 09:13] LABS: ALCOHOL, BLOOD < 3 mg/dL (0-10)
[2024-02-03] MEDS ORDERED: APIX5TAB PO (09:26)
[2024-02-03] MEDS ORDERED: MEMA5TAB42 PO (09:26)
[2024-02-03] MEDS ORDERED: PANT40TA49 PO (09:26)
[2024-02-03] MEDS ORDERED: ACET-2030 PO (09:26)
[2024-02-03] MEDS ORDERED: TRAZ-182 PO (09:26)
[2024-02-03] MEDS ORDERED: QUET50TA PO (09:26)
[2024-02-03] MEDS ORDERED: GABA-536 PO (09:26)
[2024-02-03 09:28] LABS: APPEARANCE,URINE Clear (CLEAR); BILIRUBIN,URINE Negative (NEGATIVE); BLOOD, URINE Negative Ery/uL (NEGATIVE); COLOR,URINE YELLOW (YELLOW); KETONES,URINE Negative (NEGATIVE); LEUKOCYTE ESTERASE ,URINE Negative (NEGATIVE); NITRITE, URINE Negative (NEGATIVE); PROTEIN,URINE Negative (NEGATIVE); UGLUCOSE Negative (NEGATIVE); UROBILINOGEN,URINE 0.2 EU/dL (0.2)
[2024-02-03 09:41] LABS: AMPHETAMINE, URINE NEGATIVE (NEGATIVE); BARBITURATE, URINE NEGATIVE (NEGATIVE); BENZODIAZEPINE, URINE NEGATIVE (NEGATIVE); CANNABINOID, URINE NEGATIVE (NEGATIVE); COCCAINE, URINE NEGATIVE (NEGATIVE); OPIATE, URINE NEGATIVE (NEGATIVE); PHENCYCLIDINE SCREEN,URINE NEGATIVE (NEGATIVE)
[2024-02-03] MEDS: GABAPENTIN 400 MG CAPSULE PO SCH (13:00)
[2024-02-03] MEDS ORDERED: clonazePAM 0.5 MG TABLET PO PRN (16:00)
[2024-02-03] MEDS ORDERED: risperiDONE 1 MG TABLET PO ONE ×2 (16:00→17:30)
[2024-02-03] MEDS ORDERED: MAGNESIUM HYDROXIDE 30 ML UDC PO PRN (16:00)
[2024-02-03] MEDS: BLOOD SUGAR DIAGNOSTIC 1 EACH STRIP IN ONE (16:00)
[2024-02-03] MEDS ORDERED: MAG HYDROX/AL HYDROX/SIMETH 30 ML UDC PO PRN (16:00)
[2024-02-03 16:15] VITALS: BP 131/89; TEMP 97.8; O2SAT 98
[2024-02-03] MEDS ORDERED: DEXTROSE 50%-WATER 50 ML DISP.SYRIN IV PRN (18:00)
[2024-02-03] MEDS: APIXABAN 5 MG TABLET PO SCH (18:09)
[2024-02-03] MEDS: MEMANTINE HCL 5 MG TABLET PO SCH (18:09)
[2024-02-03 18:11] VITALS: BP 131/89; TEMP 97.8; O2SAT 98
[2024-02-03] MEDS: ACETAMINOPHEN ES 500 MG TABLET PO PRN (18:17)
[2024-02-03] MEDS: INSULIN REGULAR, HUMAN 100 UNIT/ML 3 ML VIAL SQ PRN (18:53)
[2024-02-03 20:00] VITALS: BP 102/69; TEMP 97.9; O2SAT 100
[2024-02-03] MEDS: BLOOD SUGAR DIAGNOSTIC 1 EACH STRIP IN SCH (21:55)
[2024-02-03] MEDS: TEMAZEPAM 7.5 MG CAPSULE PO PRN (23:25)
[2024-02-04 08:00] VITALS: BP 120/73; TEMP 97.7; O2SAT 99
[2024-02-04 08:00] LABS: ALBUMIN 3.5 g/dL (3.4-5.0); BILIRUBIN,TOTAL 0.7 mg/dL (0.2-1.0); CALCIUM, SERUM 9.6 mg/dL (8.5-10.1); POTASSIUM 4.2 mmol/L (3.5-5.1); TOTAL PROTEIN, SERUM 7.5 g/dL (6.4-8.2)
[2024-02-04 08:03] LABS: CHOLESTEROL 185 mg/dL (<200); HDL CHOLESTEROL 75 mg/dL (40-60); LDL 91 mg/dL (0-99); TRIGLYCERIDES 39 mg/dL (30-150)
[2024-02-04 08:11] LABS: CREATININE 0.6 mg/dL (0.6-1.3)
[2024-02-04] MEDS: PANTOPRAZOLE 40 MG TABLET.DR PO SCH (08:36)
[2024-02-04] MEDS: MONTELUKAST SODIUM (10MG) 10 MG TABLET PO SCH (08:36)
[2024-02-04 16:00] VITALS: BP 90/50; TEMP 97.9; O2SAT 98
[2024-02-04 16:38] LABS: CREATININE 0.6 mg/dL (0.6-1.3)
[2024-02-04 20:00] VITALS: BP 127/76; TEMP 98.1; O2SAT 99
[2024-02-04] MEDS: QUETIAPINE FUMARATE 25 MG TABLET PO SCH (21:13)
[2024-02-05 08:00] VITALS: BP 103/69; TEMP 97.7; O2SAT 100
[2024-02-05 16:00] VITALS: BP 126/73; TEMP 98; O2SAT 97
[2024-02-05] MEDS: SILVER SULFADIAZINE 50 GM JAR TP SCH (17:00)
[2024-02-05 20:00] VITALS: BP 121/80; TEMP 97.9; O2SAT 99
[2024-02-06 08:00] VITALS: BP 90/60; TEMP 98; O2SAT 98
[2024-02-06 16:00] VITALS: BP 130/97; TEMP 98; O2SAT 100
[2024-02-06 20:00] VITALS: BP 95/57; TEMP 98.4; O2SAT 99
[2024-02-07 08:00] VITALS: BP 100/59; TEMP 97.9; O2SAT 97
[2024-02-07 16:00] VITALS: BP 103/63; TEMP 98.1; O2SAT 98
[2024-02-07 20:33] VITALS: BP 108/74; TEMP 98.4; O2SAT 100
[2024-02-08 08:00] VITALS: BP 108/68; TEMP 98.8; O2SAT 98
[2024-02-08 16:00] VITALS: BP 103/67; TEMP 98.7; O2SAT 99
[2024-02-08 20:00] VITALS: BP 118/74; TEMP 98.1; O2SAT 100
[2024-02-09 08:00] VITALS: BP 98/76; TEMP 98; O2SAT 98
[2024-02-09 16:00] VITALS: BP 99/70; TEMP 98.7; O2SAT 99
[2024-02-09 20:35] VITALS: BP 103/70; TEMP 98.9; O2SAT 98
[2024-02-09] MEDS: ACETAMINOPHEN 325 MG TABLET PO PRN (21:25)
[2024-02-10 08:00] VITALS: BP 98/63; TEMP 97.8; O2SAT 98
[2024-02-10 16:00] VITALS: BP 113/67; TEMP 98.1; O2SAT 100
[2024-02-10] MEDS: PROSOURCE / PROSTAT (PYXIS) 30 ML UDC PO SCH (17:00)
[2024-02-10 20:33] VITALS: BP 116/70; TEMP 98.2; O2SAT 98
[2024-02-11 08:00] VITALS: BP 90/50; TEMP 98.1; O2SAT 96
[2024-02-11 16:00] VITALS: BP 102/69; TEMP 97.9; O2SAT 95
[2024-02-11 20:00] VITALS: BP 116/72; TEMP 98.2; O2SAT 99
[2024-02-12 08:00] VITALS: BP 93/61; TEMP 98; O2SAT 100
[2024-02-12 16:00] VITALS: BP 98/79; TEMP 98; O2SAT 100
[2024-02-12 20:00] VITALS: BP 116/76; TEMP 98.2; O2SAT 97
[2024-02-13 08:00] VITALS: BP 99/59; TEMP 97.9; O2SAT 97
[2024-02-13 16:17] VITALS: BP 106/68; TEMP 98.6; O2SAT 98
[2024-02-13 20:00] VITALS: BP 120/76; TEMP 98.3; O2SAT 100
[2024-02-13] MEDS: HYDROCODONE/APAP 5/325MG TABLET PO PRN (20:22)
[2024-02-13 21:19] LABS: APPEARANCE,URINE CLEAR (CLEAR); BILIRUBIN,URINE NEGATIVE (NEGATIVE); BLOOD, URINE NEGATIVE Ery/uL (NEGATIVE); KETONES,URINE NEGATIVE (NEGATIVE); LEUKOCYTE ESTERASE ,URINE TRACE (NEGATIVE); NITRITE, URINE NEGATIVE (NEGATIVE); PH,URINE 6.5 (5.0-8.0); PROTEIN,URINE NEGATIVE (NEGATIVE); UGLUCOSE NEGATIVE (NEGATIVE); UROBILINOGEN,URINE 0.2 EU/dL (0.2)
[2024-02-13 22:12] LABS: COLOR,URINE LIGHT YELLOW (YELLOW)
[2024-02-13 22:15] LABS: ADD URINE CULTURE NO; BACTERIA,URINE 1+ /HPF (None Seen); MUCUS,URINE Rare /LPF (None Seen); RBC,URINE 0-2 /HPF (0-2); SQUAMOUS EPITHELIAL CELL,UR 0-2 /HPF (None Seen)
[2024-02-13] MEDS: CEPHALEXIN MONOHYDRATE 250 MG CAPSULE PO SCH (23:57)
[2024-02-14 08:00] VITALS: BP 110/59; TEMP 97.8; O2SAT 98
[2024-02-14 16:05] VITALS: BP 104/64; TEMP 98; O2SAT 100
[2024-02-14 20:31] VITALS: BP 120/73; TEMP 98; O2SAT 100
[2024-02-15 08:00] VITALS: BP 100/66; TEMP 98.1; O2SAT 100
[2024-02-15 16:00] VITALS: BP 119/65; TEMP 97.9; O2SAT 100
[2024-02-15 21:20] VITALS: BP 103/56; TEMP 98; O2SAT 100
[2024-02-16 08:00] VITALS: BP 96/46; TEMP 98.2; O2SAT 96
[2024-02-16 16:00] VITALS: BP 100/67; TEMP 98.6; O2SAT 97
[2024-02-16 21:11] VITALS: BP 108/71; TEMP 97.9; O2SAT 98
[2024-02-17 08:00] VITALS: BP 98/54; TEMP 98.7; O2SAT 96
[2024-02-17 16:00] VITALS: BP 113/70; TEMP 97.8; O2SAT 98
[2024-02-17 20:00] VITALS: BP 111/72; TEMP 98; TEMP 98.1; O2SAT 99
[2024-02-18 08:00] VITALS: BP 107/58; TEMP 97.9; O2SAT 100
== END 2024-02-18 09:41 | DRG 885 ==
LOC: ER 09:05 → GPS 15:53
PROVIDERS: ADMIT Psychiatry & Neurology Psychiatry; ATTEND Nurse Practitioner Acute Care
DX: F33.2 Major depressive disorder, recurrent severe without psychotic features (principal); L97.518 Non-pressure chronic ulcer of other part of right foot with other specified severity; F03.911 Unspecified dementia, unspecified severity, with agitation; E11.621 Type 2 diabetes mellitus with foot ulcer; Z66 Do not resuscitate; G89.4 Chronic pain syndrome; I10 Essential (primary) hypertension; E11.42 Type 2 diabetes mellitus with diabetic polyneuropathy; M15.9 Polyosteoarthritis, unspecified; Z79.01 Long term (current) use of anticoagulants; Z79.899 Other long term (current) drug therapy; Z86.711 Personal history of pulmonary embolism; F14.11 Cocaine abuse, in remission; F19.11 Other psychoactive substance abuse, in remission; Z91.410 Personal history of adult physical and sexual abuse
CPT/HCPCS: 36415; 73630-TC; 80048-TC; 80053-TC; 80061-TC; 80076-TC; 81001; 82565-TC; 82962-TC; 85025-TC; 85652-TC; 86140-TC; 87086-TC; G0480; J1815